=== PATIENT | male | born 1965 | race African-American/Black ===

== ENCOUNTER 2017-09-28 18:04 | Emergency (ER) | payer SELFPAY ==
[2017-09-28] MEDS ORDERED: Azithromycin 250 MG TAB ONE (19:35)
[2017-09-28] MEDS ORDERED: predniSONE 20 MG TAB ONE (19:35)
[2017-09-28] MEDS ORDERED: Benzonatate 100 MG CAP ONE (19:37)
--- NOTE | 2017-09-28 19:46 | RAD ---
CHEST TWO VIEWS: HISTORY: Cough. FINDINGS: The lung [place] are clear. The heart and mediastinum are unremarkable. The osseous structures are u nremarkable. IMPRESSION: No evidence of infiltrate. POS: [id number]
== END 2017-09-28 19:42 | disposition home or self-care (01) ==
LOC: MADERS 18:04
DX: J20.9 Acute bronchitis, unspecified (principal); E11.9 Type 2 diabetes mellitus without complications; I10 Essential (primary) hypertension; J45.909 Unspecified asthma, uncomplicated; F31.9 Bipolar disorder, unspecified; F25.9 Schizoaffective disorder, unspecified; F17.210 Nicotine dependence, cigarettes, uncomplicated
CPT/HCPCS: 71046; J7506